=== PATIENT | male | born 1980 | race Caucasian/White ===

== ENCOUNTER 2024-12-31 09:14 | Outpatient (CLI) | payer BC | END 2024-12-31 09:15 | disposition home or self-care (01) | LOC: CSHSLEEP 09:14 | PROVIDERS: ATTEND Family Medicine | DX: G47.33 Obstructive sleep apnea (adult) (pediatric) (principal); R53.83 Other fatigue; E66.9 Obesity, unspecified; Z68.42 Body mass index [BMI] 45.0-49.9, adult; R06.83 Snoring | CPT/HCPCS: 95811 ==